=== PATIENT | female | born 2005 | race Two or more races ===

== ENCOUNTER 2024-08-27 08:10 | Day surgery (SDC) | payer OTHER, MEDICAID, SELFPAY ==
[2024-08-26 10:45] VITALS: BMI 21.7
[2024-08-26 11:59] LABS: HCG Qualitative,Urine Negative
[2024-08-26 12:01] LABS: Alanine Aminotransferase 37 U/L (10-49); Albumin, Serum 4.3 gm/dL (3.5-5.0); Albumin/Globulin Ratio 1.3 (1.2-2.2); Alkaline Phosphatase 67 U/L (46-116); Anion Gap 7 (7-16); Aspartate Amino Transferase 42 U/L (0-34); BUN/Creatinine Ratio 22 Ratio (12-20); Bilirubin,Total 0.3 mg/dL (0.3-1.2); Blood Urea Nitrogen 13 mg/dL (9-23); Calcium 9.4 mg/dL (8.3-10.6); Calcium (Corrected) 9.4 mg/dL (8.5-10.1); Carbon Dioxide 25.9 mMol/L (20.0-31.0); Chloride 108 mMol/L (98-107); Creatinine (Component) 0.6 mg/dL (0.6-1.3); Estimated Creatinine Clearance 113.8 mL/min (>60); Globulin 3.3 gm/dL (2.3-3.5); Glucose 97 mg/dL (74-106); Osmolality,Calculated 281 (275-295); Potassium 4.2 mMol/L (3.4-5.1); Sodium 141 mMol/L (136-145); Total Protein 7.6 gm/dL (5.7-8.2); eGFR > 60 See Note
[2024-08-27] VITALS (16 sets, daily range): BP systolic 110–132; BP diastolic 57–103; PULSE 85–113; RESP 12–20; TEMP 36.1–36.8; O2SAT 96–100; BMI 23.6
[2024-08-27] MEDS: RINGERS LACTATED 1000 ML 1,000 ML 20 ML IV (09:12)
--- NOTE | 2024-08-27 13:11 | SUR.PHASEI ---
1311: Pt. arrived with oral airway in place, vitals stable, breathing unlabored, no signs of distress, dermabond behind right ear CDI, cottonball in place (ear canal), no active bleed noted, report recieved from MD Gomez and Mando GOTTLIEB.
--- NOTE | 2024-08-27 13:44 | PD.SUROPNT ---
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 There were middle ear adhesions and tympanosclerosis. The mastoid cavity is very sclerotic with almost no air cells present. The sigmoid sinus occupied most of the mastoid bone. Procedure Description Indications: This is a 18-year-old female with conditions as described above. There is concerned about a possible cholesteatoma with the severe retraction pocket and soft tissue mass visualized on CT scan. 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 The treatment options were discussed with the patient and her parents as well as surgical risks of bleeding infection hearing loss dizziness tinnitus and potential need for further surgery. They understood this and wished to proceed. Patient was marked and shaved in the preoperative setting then transferred to the operative suite where she was anesthetized intubated and sterilely prepped and draped. Facial nerve monitoring electrodes were placed in usual fashion for the right ear. Timeout was performed. The external canal as well as the postauricular area was injected with 1% lidocaine with 1 100,000 dilution epinephrine. Approximately 4 cc total were used. The canal was irrigated with warm saline solution and suction. A posterior tympanomeatal flap was created and then tympanic membrane turned forward carefully elevating the retraction pocket from the attic region posteriorly. In doing so the chorda tympani nerve was identified and preserved. The long process of the incus was found to be eroded. The stapes superstructure was intact as well as the malleus. Posterior tympanomeatal flap was created and then the postauricular incision followed by a palva flap. Area was held forward with self-retaining retractors. Mastoidectomy was initiated. Drilling was performed and exposing the sigmoid sinus which encompassed almost the entire midportion of the mastoid region. The tip had some air cells then it that were partially filled with thickened mucosa. These were opened up. At this point it was decided we need to take down the canal wall posteriorly and superiorly rather than trying to drill in a small hole. #3 cutting bur was then used to drill open the attic region down into the middle ear. The pocket was probed and found that there was no opening into the mastoid cells. There was no cholesteatoma present. The incus was rotated out and repositioned after reconfiguring it it to fit on the capitulum of the stapes and under the long process of the malleus. Temporalis fascia was harvested for rebuilding the posterior portion of the tympanic membrane. It was draped over the incus and on top of the malleus underneath the existing tympanic membrane anteriorly and inferiorly. It was also draped over the defect posteriorly and superiorly from opening up the attic region. Surgifoam was then packed in the middle ear space and then further Surgifoam was packed on top of the graft and the tympanic membrane. The ear was turned back and the flap pulled back through on the posterior canal. There is a defect of exposed bone where the mastoid had been drilled back. Bio design grafting material was placed over this. Postauricular incision was closed in a multilayer fashion. Double antibiotic ointment was injected on top of the Surgifoam and then Adaptic placed in the external canal along with a sterile cottonball at the meatus. Facial nerve monitoring electrodes were removed the patient was awakened and taken recovery room in stable condition Anesthesia GETA Pathology / specimen None Estimated Blood Loss 10 Surgeon Truong Clifford DO Surgical Staff Operation Date: 08/27/24 10:45 Case Staff Anesthesiologist: Marvin Gomez
[2024-08-27] MEDS: ONDANSETRON INJ 2 MG/ML INJ 2 ML 4 MG IV (13:47)
[2024-08-27] MEDS: METOCLOPRAMIDE INJ 5 MG/ML VIAL 2 ML 10 MG IVP (14:01)
--- NOTE | 2024-08-27 16:30 | SUR.PHASEII ---
1630: Pt. AAOx4, vitals stable, breathing unlabored, no complaint of pain or nausea, dressing to right ear had some slight drainage, dressing change completed, notified MD [place] and he stated drainage was ok. Educated pt. and her family how to complete dressing change, both verbalized understanding. Pt. tolerated sips of water well, pt. ambulated to wheelchair with assist, discharge instructions given to the pt. and her ride, both verbalized understanding and had no further questions. Pt. left with all personal belongings. Had to keep pt. for long period of time due to her being extremely tired and nauseas. Pt. felt better and was more alert by discharge.
== END 2024-08-27 16:30 | disposition home or self-care (01) ==
PROVIDERS: Anesthesiology; PCP Physician Assistant; Referring Provider Otolaryngology; Visit Provider Otolaryngology
PROC: (CPT 69641; principal; 2024-08-27 10:30)
DX: H90.11 Conductive hearing loss, unilateral, right ear, with unrestricted hearing on the contralateral side (principal); H70.11 Chronic mastoiditis, right ear; H74.21 Discontinuity and dislocation of right ear ossicles
CPT/HCPCS: 69644; 36415; 80053; 81025; A4217; A4649; C1763; J0131; J0171; J0690; J1100; J2250; J2405; J2704; J2765; J3010; J3473; J3490; J7040; J7120; A9270